=== PATIENT | female | born 1980 | race Caucasian/White ===

== ENCOUNTER 2018-11-08 08:45 | Day surgery (SDC) | payer OTHER ==
--- NOTE | 2018-11-07 21:51 | PDGENHP ---
History and Physical - Chief Complaint RIGHT HIP PAIN - History of Present Illness Diagnosis: 1.~~~Bilateral~Hip Dyplasia; Right side more symptomatic 2.~~~Bilateral~Femoroacetabular impingement (LUIS) Cam type,~with~resultant labral tear 3.~~~Sacroiliac Joint Pain 4. ~~Bilateral lower extremity~Radicular symptoms (not~yet~worked up) HISTORY OF PRESENT ILLNESS: Bandaris a~38 y.o.~~active~female~who I have had the pleasure to consult on today.~I have enjoyed meeting her.~She~lives in [place], [place].~~Bandar worked at [employer] but had to quit due to hip pain.~~She~is ;~she~has 1~ children. ~Bandarenjoys swimming, walking Meys~bilateral~hip pain (RIGHT>LEFT)~started~5 years ago, with~no~ recalled trauma or injury, and with~no~previous complaints.~Bandarhas~a known history of hip dysplasia. Presentation today is~in a C-Shaped pattern~right; lateral left. ~The hip~does~ wake her~at night and~does~click and catch on~her. Sitting~can be a real struggle~for her.~Bandardoes~report suffering from lower back pain episodes. Bandarhas not~participated in physical therapy and has~tried other conservative measures including cortisione~hip injection~x1 (no immediate relief and minimal superintendent container terminal relief), Right GT injection~.~Suzan~has not~received sufficient symptomatic improvement. Bandarhas~utilized medication for pain management, including NSAID.~ Bandarhas used medication since the pain began.~ Bandarunderstands that~suzan~has a hip and pelvis problem which should be researched and wishes to get a better understanding of~her~hip status, followed by an establishment of a treatment strategy, hoping~suzan~would be able to get back to~her~well being active life. History: Past medical history:~~ RA Lupus Heart palpitations Awais thyroiditis Relevant familial history:~None which is relevant~ Past surgical history:~ No. Surgery Anesthesia 1 Lap Gladys general 2 Tubal ligation general 3 Ex lap general Bandardescribes problematic issues with general anesthesia which includes halucinations. I have reviewed, verified and agree with the past medical, surgical, family and social history. Current Medications:~has a current medication list which includes the following prescription(s): hydroxychloroquine and potassium chloride. ALLERGIES:~is allergic to naproxen. Objective: Physical Examination: Bandaris 5~feet~4~inches tall and weighs~140~Lbs. Bandaris AAO x3; she~ is well-nourished, in NAD. Skin is warm and dry. ~Breathing is non-labored. ~CV with RRR by pulse. Abdomen is soft, NTND. Currently,~she~walks with a~abnormal~antalgic gait favoring LEFT side Trendelenburg sign is~positive~and proprioception~is reduced,~right~side. She~presents~with moderate~signs of joint laxity.~Beightons Score:~4 (thumbs and elbows) Lower spine examination is~positive~for sciatic with positive~SLR. BILATERALLY~ Range of motion of the spine is~normal~for flexion, extension, and rotations,~ with no~associated pain. Strength, Sensation and pulses are~normal -~bilaterally Ankles and knees exams are~normal~and~no~mal-alignment is evident.~ She~has~no leg length discrepancy. Thigh circumference is~symmetric~with no evidence for muscle atrophy~on both~ sides. Hip ROM (degrees): FL ER At 90~hip FL IR At 90~hip FL AB AD EX IR Neutral hip ER Neutral hip R 120 50 45 45 5 10 60 40 L 110 55 30 45 5 10 60 40 Specific hip and pelvis test Impingement Test NOEMI Roll Add. Longus R +++ +++ Negative +++ L +++ +++ Negative ++ Glut. Med ITB Posterior Imp R Negative 4+/5 strength Negative 4+/5 strength Negative L Negative 5/5 strength Negative 5/5 strength Negative Squeeze test measured~weak Bony Symphysis pubis is~painful~to touch while concentric activity of the rectus abdominis, does~produce pain at its insertion. Ilio Psos specific tests are~positive for pain during cycling for~the right hip~ and no snap. HF has~weakness and pain~the right hip. Posterior~capsule tenderness RIGHT SIDE Greater trochanteric burse is~painful~on both hips.~LEFT>RIGHT (but she received injection in Right 1 month ago. Piriformis tests: FAIR is~negative,~with no~local signs of neuritis related to sciatic nerve. SIJs examination is~produces pain on~right side~with~normal~NOEMI in relation and local tenderness. Hamstrings tests are~negative~functional contraction and negative~tendinopathy both hips. On a daily basis, the following percentages reflectRosendo's overall total pain: Deep hip:~60% GT:~10% SIJ: 30% Imaging: Radiology studies which I~have personally reviewed, analyzed and measured are below: XR: AP of the hip and pelvis: Performed in a~good~technique Coccyx to pubic symphysis distance~0.7~cm. 0~degrees [place]~Lines are preserved. Minimal~Pathological signs are seen in the Symphysis Pubis.~ Minimal~Pathological signs are seen at the Ischial~tuberosity. ~ Specific measurements show: NSA~ LCE Sourcil~Angle Sharp's angle Lat. Cam Lat. Pincer C.Over~sign Head~Coverage % ATDmm R 132 16 21 56 - - - 74 N L 138 24 11 41 - - - 79 N Pos. wall sign ISS NAD ~~Dysplasia Comments R Negative Negative 19.8~mm +++ L Negative Negative 15.7~mm ++ Sclerosis Sup. Lat. OA Cysts Joint Space-WBZ Joint Space-Medial R Negative Negative Negative 5.3~mm 3.7~mm L Negative Negative Negative 4.7~mm 3.4~mm X Table lateral: Anterior cam lesion is~seen~on both hips. Alpha Angle: ~ Right~63~dergrees Left~54~degrees Right Hip 3T~MRI shows:~good cartilage coverage, hypertrophic torn labrum, no bone edema or subchondral cysts Impression and plan:Sánchez Poe~is a~38 y.o.~active female~suffering from symptomatic~Bilateral~hip pain due to Bilateral~Hip Dyplasia and~Femoroacetabular impingement (LUIS)~Cam type,~with~resultant labral tear causing significant disability to~her~and altering~her~sport and life activities. Physical examination, imaging, and~her~story correspond with the diagnosis mentioned above. I explained that hip dysplasia is a condition wherein the hip joint has excessive play~and instability due to a variety of factors, including the depth and adequacy of the socket, the orientation of the femur bone, and ligament laxity around the hip joint. Dysplasia ranges in severity from borderline to hali, with treatment options being specific to the specific nature of the problem. Left untreated, the instability in the hip joint can cause progressive tearing of the labrum and deterioration of the surface cartilage, ultimately resulting in progressive osteoarthritis of the hip. I explained that femoroacetabular impingement (LUIS - Cam type) arises due to a bony or soft tissue conflict between the femur (ball) and acetabulum (socket) caused by an abnormality in the shape of the femoral head and neck. Over time, repetitive impingement can result in damage to the labrum and adjacent surface cartilage within the socket, ultimately giving rise to progressive osteoarthritis of the hip. I explained that although a labral tear can be a source of pain, it is rarely the root of the problem and typically occurs secondary to an underlying abnormality in the shape and mechanics of the hip joint. I reviewed conservative treatment options for Dysplasia and LUIS including activity modification to avoid positions of impingement or instability, physical therapy, non-steroidal anti-inflammatory medications, and various injections (corticosteroid and PRP) aimed at reducing inflammation in the hip joint or/and preventing dynamic instability and impingement. PRP injections may promote healing and reduce symptoms in certain cases but it will not repair chronically damaged tissue. Although these measures may help to buy time~and reduce current level of symptoms, they are not a definitive solution to the problem given the underlying abnormality in the shape of the hip joint. Patients who have failed conservative management and continue to experience symptoms are candidates for definitive surgical treatment, which may consist of hip arthroscopy alone or in combination with more invasive bony realignment procedures of the hip socket and/or femur called periacetabular osteotomy (REJI) or derotational femoral osteotomy (DFO). Hip arthroscopy typically includes treating the labrum with either repair or reconstruction of the torn labrum; as well as addressing the underlying abnormalities by restoring the normal shape to the hip joint. If the cartilage is damaged a Microfracture surgical procedure may also be necessary to help stimulate the growth of fibrocartilage. If a patient requires a labral reconstruction or a Microfracture, the initial rehabilitation from the surgery may take longer, but the superintendent container terminal results are typically favorable. I reviewed the technical aspects of periacetabular osteotomy (REJI) including risks, benefits, and expected course of recovery.~Bandarunderstands that REJI is an inpatient procedure carried out through two medium sized incisions on the front and back of the hip joint. The hip socket is cut, realigned, and stabilized with 2 3 internal screws. Risks include infection, bleeding, injury to nearby nerves or vessels, stiffness, persistent pain, instability, failure of bony healing, implant related complications, and venous thromboembolic disease. Rarely, revision surgery may be required to address these problems. Risks, potential complications, side effects and recovery from surgical procedure were discussed in length. We explained how this surgery is an open procedure, and though patients tend to do well in the long-term, it involves significant pain in the first 2-4 weeks post-op and a rather lengthy rehab.~Overall recovery takes approximately 6 12~months depending on the extent of damage and degree of repair. Bandarunderstands that she~will undergo hip arthroscopy 1 week prior to the REJI to address damage inside the hip joint. Bandarunderstands that hip arthroscopy and REJI are two separate procedures that are best performed one week apart, with the arthroscopy commencing first to "tighten up" any pathology evident in the hip joint (labral repair, etc.) and the REJI open procedure occurring 7-10 days later to realign the acetabulum. We spoke at length about her lower extremity neurologic symptoms and asked her to have a non surgical spine physician to evaluate her lumbar spine prior to moving ahead with surgical intervention. Bandarwill review the info presented. In order to obtain more detailed information regarding the alignment, orientation, and shape of the bony hip and pelvis I will order a CT scan to be performed. The results of the CT scan, including femoral torsion and acetabular version measured values and 3D images, will aid me in deciding on the best treatment strategy and surgical pre-planning. Bandarwill contact us if she~wishes to pursue further treatment in the future. Bandaris happy with this plan. I have also supplied~her~with handouts, outlining the expected surgical treatment and rehab involved. I wish~Deepika~all the best, ~~ GRACE Watson History Information - Allergies/Home Medication List Allergies/Adverse Reactions: naproxen Allergy (Mild, Verified 10/20/18 14:45) Ringing in ears adhesive tape Allergy (Verified 10/20/18 14:45) Rash Seasonal allergies Allergy (Uncoded 10/20/18 14:45) Home Medications: Hydroxychloroquine Sulfate [Plaquenil 200 mg (*)] 200 mg PO DAILY 10/20/18 [ Last Taken Unknown] Guar Gum [Benefiber/Nutrisource Fiber (*)] 1 each PO DAILY 10/29/18 [Last Taken Unknown] I have personally reviewed and updated: medical history - Social History Smoking Status: Light smoker Review of Systems Review of Systems: Physical Exam Physical Exam:
[2018-11-08] MEDS ORDERED: ceFAZolin 2 GM/DEXTROSE 100 ML IV ONE (08:51)
[2018-11-08] MEDS ORDERED: ACETAMINOPHEN 500 MG TAB PO ONE (08:51)
[2018-11-08] MEDS ORDERED: PREGABALIN 150 MG CAP PO ONE (08:51)
[2018-11-08] MEDS ORDERED: LR 1,000 ML IV ONE (08:53)
[2018-11-08] MEDS ORDERED: MIDAZOLAM 2 MG/2 ML VIAL IVP ONE (09:11)
[2018-11-08] MEDS ORDERED: BUPIVACAINE/EPI 0.25% 30 ML SDV ONE (09:16)
--- NOTE | 2018-11-08 09:17 | PDANEPAE ---
ANE Past Medical History - Cardiovascular History Hx Hypertension: No Hx Arrhythmias: No Hx Chest Pain: No Hx CHF / Valvular Disease: No Hx Palpitations: Yes Cardiovascular History Comment: INTERMITTENT Palpitations PAC'S/PVC'S. HYPOTENSION - Pulmonary History Hx COPD: No Hx Asthma/Reactive Airway Disease: No Hx Recent Upper Respiratory Infection: No Hx Oxygen in Use at Home: No Hx Sleep Apnea: No Sleep Apnea Screening Result - Last Documented: Negative - Neurologic History Hx Cerebrovascular Accident: No Hx Seizures: No Hx Dementia: No - Endocrine History Hx Diabetes: Yes Hypothyroid: No Hyperthyroid: No Obesity: no Endocrine History Comment: Awais's thyroiditis. NO RX IN USE - Renal History Hx Renal Disorders: No - Liver History Hx Hepatic Disorders: Yes Hepatic History Comment: GALACTOSEMIA at , now resolved. - Neurological & Psychiatric Hx Hx Neurological and Psychiatric Disorders: Yes Neurological / Psychiatric History Comment: Migraines,. OCD,. depression. - Cancer History Hx Cancer: No - Congenital Disorder History Hx Congenital Disorders: Yes Congenital History Comment: GalACTOSEMIA at , now resolved. - GI History GERD: no Hx Gastrointestinal Disorders: Yes Gastrointestinal History Comment: Cholecystectomy,. IBS. - Other Health History Other Health History: Lupus,. Reynaud's HANDS AND FEET. seasonal allergies. - Chronic Pain History Chronic Pain: Yes (RT HIP) - Surgical History Prior Surgeries: RT HIP SCOPE 11/08/18. HEMORRHOIDECTOMY 2018. ABDOMINAL VERICOSE VEIN COILS PLACED 2013. 2005 Cholecystectomy. 2005 D&C. 2009 Tubal ligation POST PROCEDURE ONE CAME UNDONE REQUIRING EXP LAP. 2008 Exploratiry abdominal surgery. 2009 Hysterectomy. 2012 Vericose vein coils in abdomen. 2017 Hemorrhoidectomy. Colonoscopy ANE Review of Systems Review of Systems: - Exercise capacity METS (RN): 4 METS ANE Patient History - Allergies Allergies/Adverse Reactions: naproxen Allergy (Mild, Verified 10/20/18 14:45) Ringing in ears adhesive tape Allergy (Verified 10/20/18 14:45) Rash Seasonal allergies Allergy (Uncoded 10/20/18 14:45) - Home Medications Home medications: home medication list seen and reviewed Home Medications: Hydroxychloroquine Sulfate [Plaquenil 200 mg (*)] 200 mg PO DAILY 10/20/18 [ Last Taken 11/07/18] Guar Gum [Benefiber/Nutrisource Fiber (*)] 1 each PO DAILY 10/29/18 [Last Taken 11/06/18] - NPO status NPO Since - Liquids (Date): 11/08/18 NPO Since - Liquids (Time): 06:30 NPO Since - Solids (Date): 11/07/18 NPO Since - Solids (Time): 18:40 - Anes Hx Anes Hx: no prior problems - Smoking Hx Smoking Status: Light smoker - Alcohol Use Alcohol Use: Rarely - Family Anes Hx Family Anes Hx: none Family Hx Anesthesia Complications: Maternal grandfather takes a while to come out of anesthesia. ANE Labs/Vital Signs - Vital Signs Blood Pressure: 111/70 Heart Rate: 65 Respiratory Rate: 18 O2 Sat (%): 98 Height: 162.56 cm Weight: 65.771 kg ANE Physical Exam - Airway Neck exam: FROM Mallampati Score: Class 1 Mouth exam: normal dental/mouth exam - Pulmonary Pulmonary: no respiratory distress, no rales or rhonchi - Cardiovascular Cardiovascular: regular rate and rhythym, no murmur, rub, or gallop ANE Anesthesia Plan Anesthesia Plan: general endotracheal anesthesia
[2018-11-08] MEDS ORDERED: EPINEPHrine 30 MG/30 ML MDV (0.1 MG/0.1 ML) ONE (09:21)
[2018-11-08] MEDS ORDERED: fentaNYL 250 MCG/5 ML INJ ONE (10:02)
[2018-11-08] MEDS ORDERED: ROCURONIUM 100 MG/10 ML VIAL ONE (10:03)
[2018-11-08] MEDS ORDERED: GLYCOPYRROLATE 0.2 MG/1 ML VIAL ONE ×3 (10:03→14:42)
[2018-11-08] MEDS ORDERED: DEXAMETHASONE 4 MG/ML VIAL ONE (10:03)
[2018-11-08] MEDS ORDERED: PROPOFOL/EMULSION 500 MG/50 ML BOTTLE IV ONE ×2 (10:03)
[2018-11-08] MEDS ORDERED: LIDOCAINE 2% 5 ML SDV ONE (10:03)
[2018-11-08] MEDS ORDERED: PETROLAT,WHT/MIN OIL/SOD CHL 3.5 GM OPHT.OINT ONE (10:11)
[2018-11-08] MEDS ORDERED: PROPOFOL 200 MG/20 ML VIAL ONE (13:41)
[2018-11-08] MEDS ORDERED: fentaNYL 100 MCG/2 ML INJ ONE ×2 (13:41→14:54)
[2018-11-08] MEDS ORDERED: ONDANSETRON 4 MG/2 ML VIAL ONE (14:29)
[2018-11-08] MEDS ORDERED: NEOSTIGMINE METHYLSULFATE 10 MG/10 ML MDV ONE (14:42)
[2018-11-08] MEDS ORDERED: ONDANSETRON 4 MG/2 ML VIAL IVP PRN (14:52)
[2018-11-08] MEDS ORDERED: DIAZEPAM 10 MG/2 ML SYR IVP PRN (14:52)
[2018-11-08] MEDS ORDERED: PROMETHAZINE HCL 25 MG/ML INJ IVP PRN (14:52)
[2018-11-08] MEDS ORDERED: fentaNYL 100 MCG/2 ML INJ IVP PRN (14:52)
[2018-11-08] MEDS ORDERED: NALOXONE HCL 0.4 MG/ML INJ IVP PRN (14:52)
[2018-11-08] MEDS ORDERED: HYDROmorphONE/DILAUDID 1 MG/ML INJ IVP PRN (14:52)
--- NOTE | 2018-11-08 14:57 | POSTOPPROG ---
Post Op Note Date of Operation: 11/08/18 Surgeon: Aric Reed Post Office Clerk: Dr. Brar Anesthesia: GET(General Endotracheal) Pre-op Diagnosis: RIGHT LUIS Post-op Diagnosis: RIGHT LUIS Procedure: Right Hip Arthroscopy Inf/Abcess present in the surg proc area at time of surgery?: No
[2018-11-08] MEDS ORDERED: oxyCODONE IR 5 MG TAB ONE (16:08)
[2018-11-08] MEDS ORDERED: oxyCODONE IR 5 MG TAB PO ONE (16:15)
--- NOTE | 2018-11-08 16:36 | POSTANESTH ---
Post Anesthetic Evaluation Cardiovascular Status: Normal, Stable Respiratory Status: Normal, Stable Level of Consciousness/Mental Status: Can Participate in Eval Pain Control: Adequate, Prn Tx Ordered Nausea/Vomiting Control: Adequate, Prn Tx Ordered Complications Possibly Related to Anesthesia: None Noted
== END 2018-11-08 14:40 | disposition home or self-care (01) ==
LOC: FSGY 08:45
PROVIDERS: ATTEND Orthopaedic Surgery Sports Medicine
DX: S73.191A Other sprain of right hip, initial encounter (principal); M25.851 Other specified joint disorders, right hip; M21.951 Unspecified acquired deformity of right thigh; M53.3 Sacrococcygeal disorders, not elsewhere classified; X58.XXXA Exposure to other specified factors, initial encounter
CPT/HCPCS: C1713; J0171; J0690; J1100; J2250; J2405; J2704; J3010

== ENCOUNTER 2018-11-15 10:28 | Inpatient (IN) | payer OTHER ==
--- NOTE | 2018-11-14 20:21 | PDGENHP ---
History and Physical - Chief Complaint RIGHT HIP PAIN - History of Present Illness 1.~~~Bilateral~Hip Dyplasia; Right side more symptomatic 2.~~~Bilateral~Femoroacetabular impingement (LUIS) Cam type,~with~resultant labral tear 3.~~~Sacroiliac Joint Pain 4. ~~Bilateral lower extremity~Radicular symptoms (not~yet~worked up) HISTORY OF PRESENT ILLNESS: Bandaris a~38 y.o.~~active~female~who I have had the pleasure to consult on today.~I have enjoyed meeting her.~Suzan~lives in [place], [place].~~Bandar worked at [employer] but had to quit due to hip pain.~~She~is ;~she~has 1~ children. ~Bandarenjoys swimming, walking Meys~bilateral~hip pain (RIGHT>LEFT)~started~5 years ago, with~no~ recalled trauma or injury, and with~no~previous complaints.~Bandarhas~a known history of hip dysplasia. Presentation today is~in a C-Shaped pattern~right; lateral left. ~The hip~does~ wake her~at night and~does~click and catch on~her. Sitting~can be a real struggle~for her.~Bandardoes~report suffering from lower back pain episodes. Bandarhas not~participated in physical therapy and has~tried other conservative measures including cortisione~hip injection~x1 (no immediate relief and minimal detention relief), Right GT injection~.~Suzan~has not~received sufficient symptomatic improvement. Bandarhas~utilized medication for pain management, including NSAID.~ Bandarhas used medication since the pain began.~ Bandarunderstands that~suzan~has a hip and pelvis problem which should be researched and wishes to get a better understanding of~her~hip status, followed by an establishment of a treatment strategy, hoping~suzan~would be able to get back to~her~well being active life. History: Past medical history:~~ RA Lupus Heart palpitations Awais thyroiditis Relevant familial history:~None which is relevant~ Past surgical history:~ No. Surgery Anesthesia 1 Lap Gladys general 2 Tubal ligation general 3 Ex lap general Bandardescribes problematic issues with general anesthesia which includes halucinations. I have reviewed, verified and agree with the past medical, surgical, family and social history. Current Medications:~has a current medication list which includes the following prescription(s): hydroxychloroquine and potassium chloride. ALLERGIES:~is allergic to naproxen. Objective: Physical Examination: Bandaris 5~feet~4~inches tall and weighs~140~Lbs. Bandaris AAO x3; she~ is well-nourished, in NAD. Skin is warm and dry. ~Breathing is non-labored. ~CV with RRR by pulse. Abdomen is soft, NTND. Currently,~she~walks with a~abnormal~antalgic gait favoring LEFT side Trendelenburg sign is~positive~and proprioception~is reduced,~right~side. She~presents~with moderate~signs of joint laxity.~Beightons Score:~4 (thumbs and elbows) Lower spine examination is~positive~for sciatic with positive~SLR. BILATERALLY~ Range of motion of the spine is~normal~for flexion, extension, and rotations,~ with no~associated pain. Strength, Sensation and pulses are~normal -~bilaterally Ankles and knees exams are~normal~and~no~mal-alignment is evident.~ She~has~no leg length discrepancy. Thigh circumference is~symmetric~with no evidence for muscle atrophy~on both~ sides. Hip ROM (degrees): FL ER At 90~hip FL IR At 90~hip FL AB AD EX IR Neutral hip ER Neutral hip R 120 50 45 45 5 10 60 40 L 110 55 30 45 5 10 60 40 Specific hip and pelvis test Impingement Test NOEMI Roll Add. Longus R +++ +++ Negative +++ L +++ +++ Negative ++ Glut. Med ITB Posterior Imp R Negative 4+/5 strength Negative 4+/5 strength Negative L Negative 5/5 strength Negative 5/5 strength Negative Squeeze test measured~weak Bony Symphysis pubis is~painful~to touch while concentric activity of the rectus abdominis, does~produce pain at its insertion. Ilio Psos specific tests are~positive for pain during cycling for~the right hip~ and no snap. HF has~weakness and pain~the right hip. Posterior~capsule tenderness RIGHT SIDE Greater trochanteric burse is~painful~on both hips.~LEFT>RIGHT (but she received injection in Right 1 month ago. Piriformis tests: FAIR is~negative,~with no~local signs of neuritis related to sciatic nerve. SIJs examination is~produces pain on~right side~with~normal~NOEMI in relation and local tenderness. Hamstrings tests are~negative~functional contraction and negative~tendinopathy both hips. On a daily basis, the following percentages reflectRosendo's overall total pain: Deep hip:~60% GT:~10% SIJ: 30% Imaging: Radiology studies which I~have personally reviewed, analyzed and measured are below: XR: AP of the hip and pelvis: Performed in a~good~technique Coccyx to pubic symphysis distance~0.7~cm. 0~degrees [place]~Lines are preserved. Minimal~Pathological signs are seen in the Symphysis Pubis.~ Minimal~Pathological signs are seen at the Ischial~tuberosity. ~ Specific measurements show: NSA~ LCE Sourcil~Angle Sharp's angle Lat. Cam Lat. Pincer C.Over~sign Head~Coverage % ATDmm R 132 16 21 56 - - - 74 N L 138 24 11 41 - - - 79 N Pos. wall sign ISS NAD ~~Dysplasia Comments R Negative Negative 19.8~mm +++ L Negative Negative 15.7~mm ++ Sclerosis Sup. Lat. OA Cysts Joint Space-WBZ Joint Space-Medial R Negative Negative Negative 5.3~mm 3.7~mm L Negative Negative Negative 4.7~mm 3.4~mm X Table lateral: Anterior cam lesion is~seen~on both hips. Alpha Angle: ~ Right~63~dergrees Left~54~degrees Right Hip 3T~MRI shows:~good cartilage coverage, hypertrophic torn labrum, no bone edema or subchondral cysts Impression and plan:Sánchez Poe~is a~38 y.o.~active female~suffering from symptomatic~Bilateral~hip pain due to Bilateral~Hip Dyplasia and~Femoroacetabular impingement (LUIS)~Cam type,~with~resultant labral tear causing significant disability to~her~and altering~her~sport and life activities. Physical examination, imaging, and~her~story correspond with the diagnosis mentioned above. I explained that hip dysplasia is a condition wherein the hip joint has excessive play~and instability due to a variety of factors, including the depth and adequacy of the socket, the orientation of the femur bone, and ligament laxity around the hip joint. Dysplasia ranges in severity from borderline to hali, with treatment options being specific to the specific nature of the problem. Left untreated, the instability in the hip joint can cause progressive tearing of the labrum and deterioration of the surface cartilage, ultimately resulting in progressive osteoarthritis of the hip. I explained that femoroacetabular impingement (LUIS - Cam type) arises due to a bony or soft tissue conflict between the femur (ball) and acetabulum (socket) caused by an abnormality in the shape of the femoral head and neck. Over time, repetitive impingement can result in damage to the labrum and adjacent surface cartilage within the socket, ultimately giving rise to progressive osteoarthritis of the hip. I explained that although a labral tear can be a source of pain, it is rarely the root of the problem and typically occurs secondary to an underlying abnormality in the shape and mechanics of the hip joint. I reviewed conservative treatment options for Dysplasia and LUIS including activity modification to avoid positions of impingement or instability, physical therapy, non-steroidal anti-inflammatory medications, and various injections (corticosteroid and PRP) aimed at reducing inflammation in the hip joint or/and preventing dynamic instability and impingement. PRP injections may promote healing and reduce symptoms in certain cases but it will not repair chronically damaged tissue. Although these measures may help to buy time~and reduce current level of symptoms, they are not a definitive solution to the problem given the underlying abnormality in the shape of the hip joint. Patients who have failed conservative management and continue to experience symptoms are candidates for definitive surgical treatment, which may consist of hip arthroscopy alone or in combination with more invasive bony realignment procedures of the hip socket and/or femur called periacetabular osteotomy (REJI) or derotational femoral osteotomy (DFO). Hip arthroscopy typically includes treating the labrum with either repair or reconstruction of the torn labrum; as well as addressing the underlying abnormalities by restoring the normal shape to the hip joint. If the cartilage is damaged a Microfracture surgical procedure may also be necessary to help stimulate the growth of fibrocartilage. If a patient requires a labral reconstruction or a Microfracture, the initial rehabilitation from the surgery may take longer, but the terminal computer operator results are typically favorable. I reviewed the technical aspects of periacetabular osteotomy (REJI) including risks, benefits, and expected course of recovery.~Bandarunderstands that REJI is an inpatient procedure carried out through two medium sized incisions on the front and back of the hip joint. The hip socket is cut, realigned, and stabilized with 2 3 internal screws. Risks include infection, bleeding, injury to nearby nerves or vessels, stiffness, persistent pain, instability, failure of bony healing, implant related complications, and venous thromboembolic disease. Rarely, revision surgery may be required to address these problems. Risks, potential complications, side effects and recovery from surgical procedure were discussed in length. We explained how this surgery is an open procedure, and though patients tend to do well in the long-term, it involves significant pain in the first 2-4 weeks post-op and a rather lengthy rehab.~Overall recovery takes approximately 6 12~months depending on the extent of damage and degree of repair. Bandarunderstands that she~will undergo hip arthroscopy 1 week prior to the REJI to address damage inside the hip joint. Bandarunderstands that hip arthroscopy and REJI are two separate procedures that are best performed one week apart, with the arthroscopy commencing first to "tighten up" any pathology evident in the hip joint (labral repair, etc.) and the REJI open procedure occurring 7-10 days later to realign the acetabulum. We spoke at length about her lower extremity neurologic symptoms and asked her to have a non surgical spine physician to evaluate her lumbar spine prior to moving ahead with surgical intervention. Bandarwill review the info presented. In order to obtain more detailed information regarding the alignment, orientation, and shape of the bony hip and pelvis I will order a CT scan to be performed. The results of the CT scan, including femoral torsion and acetabular version measured values and 3D images, will aid me in deciding on the best treatment strategy and surgical pre-planning. Bandarwill contact us if she~wishes to pursue further treatment in the future. Bandaris happy with this plan. I have also supplied~her~with handouts, outlining the expected surgical treatment and rehab involved. I wish~DeepikaSánchezall the best, ~~ GRACE Watson History Information - Allergies/Home Medication List Allergies/Adverse Reactions: naproxen Allergy (Mild, Verified 10/20/18 14:45) Ringing in ears adhesive tape Allergy (Verified 10/20/18 14:45) Rash Seasonal allergies Allergy (Uncoded 10/20/18 14:45) Home Medications: Hydroxychloroquine Sulfate [Plaquenil 200 mg (*)] 200 mg PO DAILY 10/20/18 [ Last Taken 11/07/18] Guar Gum [Benefiber/Nutrisource Fiber (*)] 1 each PO DAILY 10/29/18 [Last Taken 11/06/18] I have personally reviewed and updated: medical history Review of Systems Review of Systems: Physical Exam Physical Exam:
[2018-11-15] MEDS ORDERED: ceFAZolin 2 GM/DEXTROSE 100 ML IV ONE (11:06)
[2018-11-15] MEDS ORDERED: ACETAMINOPHEN 500 MG TAB PO ONE (11:06)
[2018-11-15] MEDS ORDERED: SCOPOLAMINE HYDROBROMIDE 1 MG/3 DAYS PATCH TD ONE (11:06)
[2018-11-15] MEDS ORDERED: TRANEXAMIC ACID 1,000 MG in NS 100 ML IV ONE (11:06)
[2018-11-15] MEDS ORDERED: PREGABALIN 150 MG CAP PO ONE (11:06)
[2018-11-15] MEDS ORDERED: LR 1,000 ML IV ONE (11:10)
[2018-11-15] MEDS ORDERED: CITRATE DEXTROSE SOLN 500 ML BAG ONE (11:25)
[2018-11-15] MEDS ORDERED: MIDAZOLAM 2 MG/2 ML VIAL IVP ONE (12:30)
--- NOTE | 2018-11-15 12:30 | PDANEPAE ---
ANE History of Present Illness right hip dysplsia ANE Past Medical History - Cardiovascular History Hx Hypertension: No Hx Arrhythmias: No Hx Chest Pain: No Hx CHF / Valvular Disease: No Hx Palpitations: Yes Cardiovascular History Comment: INTERMITTENT Palpitations PAC'S/PVC'S. HYPOTENSION - Pulmonary History Hx COPD: No Hx Asthma/Reactive Airway Disease: No Hx Recent Upper Respiratory Infection: No Hx Oxygen in Use at Home: No Hx Sleep Apnea: No - Neurologic History Hx Cerebrovascular Accident: No Hx Seizures: No Hx Dementia: No - Endocrine History Hx Diabetes: No Obesity: no Endocrine History Comment: Awais's thyroiditis. NO RX IN USE - Renal History Hx Renal Disorders: No - Liver History Hx Hepatic Disorders: Yes Hepatic History Comment: GALACTOSEMIA at , now resolved. - Neurological & Psychiatric Hx Hx Neurological and Psychiatric Disorders: Yes Neurological / Psychiatric History Comment: Migraines,. OCD,. depression. - Cancer History Hx Cancer: No - Congenital Disorder History Hx Congenital Disorders: Yes Congenital History Comment: GalACTOSEMIA at , now resolved. - GI History Hx Gastrointestinal Disorders: Yes Gastrointestinal History Comment: Cholecystectomy,. IBS. - Other Health History Other Health History: Lupus,. Reynaud's HANDS AND FEET. seasonal allergies. - Chronic Pain History Chronic Pain: Yes (RT HIP) - Surgical History Prior Surgeries: RT HIP SCOPE 11/08/18. HEMORRHOIDECTOMY 2018. ABDOMINAL VERICOSE VEIN COILS PLACED 2013. 2005 Cholecystectomy. 2005 D&C. 2009 Tubal ligation POST PROCEDURE ONE CAME UNDONE REQUIRING EXP LAP. 2008 Exploratiry abdominal surgery. 2009 Hysterectomy. 2012 Vericose vein coils in abdomen. 2017 Hemorrhoidectomy. Colonoscopy ANE Review of Systems Review of systems is: negative Review of Systems: - Exercise capacity METS (RN): 5 METS ANE Patient History - Allergies Allergies/Adverse Reactions: naproxen Allergy (Mild, Verified 10/20/18 14:45) Ringing in ears adhesive tape Allergy (Verified 10/20/18 14:45) Rash Seasonal allergies Allergy (Uncoded 10/20/18 14:45) - Home Medications Home medications: home medication list seen and reviewed Home Medications: Hydroxychloroquine Sulfate [Plaquenil 200 mg (*)] 200 mg PO DAILY 10/20/18 [ Last Taken 11/14/18] Guar Gum [Benefiber/Nutrisource Fiber (*)] 1 each PO DAILY 10/29/18 [Last Taken 11/13/18] Oxycodone-Acetaminophen 5-325 11/15/18 [Last Taken 11/13/18] - NPO status NPO Status: no food or drink >8 hours NPO Since - Liquids (Date): 11/15/18 NPO Since - Liquids (Time): 08:30 NPO Since - Solids (Date): 11/14/18 NPO Since - Solids (Time): 19:00 - Anes Hx Anes Hx: post operative cognitive dysfunction Hx Anesthesia Complications (with details): hallucinations post anesthesia, did not cause distress - Smoking Hx Smoking Status: Former smoker Marijuana use: No - Alcohol Use Alcohol Use: None - Family Anes Hx Family Hx Anesthesia Complications: Maternal grandfather takes a while to come out of anesthesia. ANE Labs/Vital Signs - Labs Result Diagrams: 11/15/18 11:06 - Vital Signs Blood Pressure: 102/65 Heart Rate: 66 Respiratory Rate: 16 O2 Sat (%): 98 Height: 162.56 cm Weight: 63.503 kg ANE Physical Exam - Airway Neck exam: FROM Mallampati Score: Class 1 Mouth exam: normal dental/mouth exam - Pulmonary Pulmonary: no respiratory distress, clear to auscultation - Cardiovascular Cardiovascular: regular rate and rhythym, no murmur, rub, or gallop - ASA Status ASA Status: II ANE Anesthesia Plan Anesthesia Plan: general endotracheal anesthesia, spinal
[2018-11-15] MEDS ORDERED: fentaNYL 250 MCG/5 ML INJ ONE (12:49)
[2018-11-15] MEDS ORDERED: morphINE PF 5 MG/10 ML INJ ONE (12:49)
[2018-11-15] MEDS ORDERED: PROPOFOL/EMULSION 500 MG/50 ML BOTTLE IV ONE (12:49)
[2018-11-15] MEDS ORDERED: ROCURONIUM 100 MG/10 ML VIAL ONE (12:49)
[2018-11-15] MEDS ORDERED: LIDOCAINE 2% 5 ML SDV ONE (12:49)
[2018-11-15] MEDS ORDERED: DEXAMETHASONE 4 MG/ML VIAL ONE (13:50)
[2018-11-15] MEDS ORDERED: ePHEDrine SULFATE 25 MG/5 ML SYR ONE (13:59)
[2018-11-15] MEDS ORDERED: PHENYLEPHRINE HCL 100 MCG/ML SYR ONE (16:20)
[2018-11-15] MEDS ORDERED: BISACODYL 10 MG SUPP PR PRN (18:11)
[2018-11-15] MEDS ORDERED: LACTULOSE 20 GM/30 ML UDCUP PO PRN (18:11)
[2018-11-15] MEDS ORDERED: MAGNESIUM HYDROXIDE 30 ML UDCUP PO PRN (18:11)
[2018-11-15] MEDS ORDERED: POLYETHYLENE GLYCOL 3350 17 GM PKT PO PRN (18:11)
[2018-11-15] MEDS ORDERED: ONDANSETRON DISINTEGRATING 4 MG TAB PO PRN (18:11)
[2018-11-15] MEDS ORDERED: HYDROmorphONE/DILAUDID 6 MG/30 ML PCA IV PRN (18:13)
[2018-11-15] MEDS ORDERED: NALOXONE HCL 0.4 MG/ML INJ IVP PRN ×2 (18:13→18:49)
[2018-11-15] MEDS ORDERED: diphenhydrAMINE 25 MG CAP PO PRN (18:13)
[2018-11-15] MEDS ORDERED: LR 1,000 ML IV SCH (18:30)
--- NOTE | 2018-11-15 18:46 | SUROPNOTE ---
[facility] Operative Report - Surgery Surgery was performed at [facility] on~11/15/18~ Diagnosis:~Right 1. Hip Acetabular Dysplasia ~ Operation: Right~Jazmyn Acetabular Osteotomy (REJI) Surgeon: Aric Reed MD Computer Networker:~~Beth Brar MD Anesthetic: General + spinal Procedure: General anesthetic. Antibiotics given. Cell saver in use. Fluoroscopy. Phase 1: Position lateral, diagonal skin incision between ischial tuberosity and greater trochanter as for posterior hip approach. Blunt split of glut max fibers. Identification of fat pad overlying sciatic nerve. Exposure of sciatic nerve under fat pad, gently retracting it away-medially to ischial tuberosity. Exposure of subcotoloid fossa proximal to short rotators. UsingPrecision saw, osteotomy of subcotoloid -49 mm short of (lateral to) thesciatic notch. Closure of lateral cut. Patient is turned supine. Phase 2: Skin incision just distal to ASIS. Using diathermy the iliac spine was exposed and inguinal ligament + Sartorious were retracted medially, taking the LFCN with them, protecting it. Inner ilium was dissected from iliacus muscle bluntly , with a cob and swab. Dissection continued towards lateral superior ramus pubis. Using fluoroscopy an osteotomy of lateral superior ramus, just medial to tear drop, was performed with~curved fish mouth osteotome. Phase 3: Osteotomy lines of the ilium were marked with diathermy as pre planned according to XR/CT and expected correction of acatabulum. 2 Shanz screws were drilled into central acetabular fragment, corresponding with planned correction angles, in order to mobilize central acetabular fragment after osteotomy is complete. ~Iliac osteotomy was performed with reciprocating saw and the main acetabular fragment was moved to realign weight bearing position. After confirmation of correction using fluoroscopy in AP and false profile planes, the fragment was fixed with 3 -~5.5mm~~full threaded~screws~. Inguinal ligament and Sartorious were attached back to ASIS through drill holes. Incision was closed according to soft tissue layers. Skin was closed with~subdermal Monocryl. Final fluoro shots were obtained to confirm position/correction. After surgery~Deepika~moved both lower limbs and had no NV motor compromise. Specimen - none Bleeding -~600ml Complication - none Evaluation under anesthesia: IR at 90 degrees hip flexion prior to REJI was~45~degrees and after REJI was 10~ degrees (20-25 prior to correction, 5-10 after she woke up). Bleeding:~600~cc into cell-saver, 270~of blood products were returned to patient. Post op instructions: 1.~Non~weight bearing crutches for 6 weeks - Bone was soft. 2. Continuous SCD 3. Aspirin 81 mg X1 day starting POD1 4. Avoid hip flexion past 90 and hip External rotation. 5. PT according to my recommendations at follow up visit Kind regards, Dr. Aric Reed .
[2018-11-15] MEDS ORDERED: LR 500 ML IV PRN (18:49)
[2018-11-15] MEDS ORDERED: PROMETHAZINE HCL 25 MG/ML INJ IVP PRN (18:49)
[2018-11-15] MEDS ORDERED: fentaNYL 100 MCG/2 ML INJ ONE (19:02)
[2018-11-15] MEDS: fentaNYL 100 MCG/2 ML INJ IVP PRN ×4 (19:03→20:05)
[2018-11-15] MEDS: NS 1,000 ML IV SCH (22:00)
[2018-11-15] MEDS: oxyCODONE IR 5 MG TAB PO SCH (22:17)
[2018-11-15] MEDS: SENNOSIDES/DOCUSATE SODIUM TAB PO SCH (22:17)
[2018-11-15] MEDS: NAPROXEN SODIUM 220 MG TAB PO SCH (22:17)
[2018-11-15] MEDS: ONDANSETRON 4 MG/2 ML VIAL IVP PRN (22:26)
[2018-11-16] MEDS: oxyCODONE IR 5 MG TAB PO SCH ×6 (01:58→22:06)
[2018-11-16] MEDS: NS 1,000 ML IV SCH ×2 (06:18→16:35)
[2018-11-16] MEDS: PANTOPRAZOLE SODIUM 40 MG TAB PO SCH (08:23)
[2018-11-16] MEDS: HYDROXYCHLOROQUINE SULFATE 200 MG TAB PO SCH (08:24)
[2018-11-16] MEDS: SENNOSIDES/DOCUSATE SODIUM TAB PO SCH ×2 (08:24→22:06)
[2018-11-16] MEDS: NAPROXEN SODIUM 220 MG TAB PO SCH ×3 (08:24→22:06)
[2018-11-16] MEDS: BENEFIBER/NUTRISOURCE FIBER PKT 1 EACH PO SCH (08:25)
--- NOTE | 2018-11-16 10:53 | GCON ---
[f rep st] CONSULTATION REASON FOR CONSULTATION: Medical management. HISTORY OF PRESENT ILLNESS: Deepika Gray is a 38-year-old female who has a history of lupus, Raynaud's, irritable bowel syndrome, as well as rheumatoid arthritis, who has had chronic bilateral hip pain. She is from the [place] area. She has a history of known hip dysplasia. She was referred to Dr. Reed and subsequently had surgery on the . She is postop day #1 for a periacetabular osteotomy. During my interview, her pain is overall well managed. She is on a Dilaudid HAND ROLLER. Her pain is at a level 4 without movement. She says it doubles when getting out of bed. She also has a history of irritable bowel syndrome. She recently has lost 10 pounds. She said her symptoms of irritable bowel are well controlled by an isogenic diet. She denies any chest pain. No shortness of breath. Her appetite is good. No issues with urinary frequency, burning. PAST MEDICAL HISTORY: 1. Irritable bowel syndrome. 2. Raynaud's diagnosed in 2012. 3. Lupus diagnosed in 2012. 4. Awais thyroiditis diagnosed in 2001. 5. Rheumatoid arthritis, not on treatment. 6. Tachycardia arrhythmias. She had been on metoprolol, but this was discontinued. PAST SURGICAL HISTORY: 1. Hemorrhoidectomy. 2. Cholecystectomy. 3. Tubal ligation. 4. Exploratory abdominal surgery due to bleeding after the tubal ligation. FAMILY HISTORY: Her mother has multiple health issues including psoriasis. Father's health history is unknown. SOCIAL HISTORY: She has 4 children. She is . 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 She used to smoke, but quit smoking. She drinks alcohol socially. She enjoys swimming and walking. ALLERGIES: Naproxen causes tinnitus, but not a true allergy. HOME MEDICATIONS: Percocet 1 to 2 tabs q.4 to 6 hours p.r.n., Valium 2 mg q.6 hours p.r.n., Plaquenil 200 mg daily, Benefiber daily. REVIEW OF SYSTEMS: A 10-point review of system was performed and was negative other than pertinent positives in HPI and past medical history. PHYSICAL EXAM: GENERAL: The patient is a 38-year-old female who does not appear to be in any acute distress. VITAL SIGNS: Blood pressure is 90/48, heart rate is 62, respiratory rate of 17, O2 sats on room air 95%, temperature is 36.7 Celsius. EYES: Pupils are equal and reactive. EOMs are intact. No conjunctival injection noted. ENT: Normal ears. Hearing intact. NECK: Trachea is midline. CARDIOVASCULAR: Regular rate and rhythm. No murmurs, rubs , or gallops noted. 2+ pedal pulses. CHEST/LUNGS: Normal respiratory effort. ABDOMEN: Soft, nontender. SKIN: No rashes or ulcers. Her right hip has a dressing in place; no drainage. She has a moderate amount of swelling. PSYCHIATRIC: She is alert and oriented. Normal mood and affect. Normal judgment, insight and normal memory. DATA: Reviewed. A CBC shows a white blood cell count of 8.68, hemoglobin 10.4 , hematocrit of 30.3, platelet count of 144. Chemistry: Sodium is 134, potassium 4.8, chloride 106, CO2 of 22, BUN 11, creatinine 0.7, calcium 7.8. I reviewed her care with Dr. Reed. ASSESSMENT/PLAN: 1. Hip dysplasia, most notably noted on the right side. She is status post a periacetabular osteotomy. Pain management per Orthopedics. 2. Lupus. Resume Plaquenil. 3. Tachycardia arrhythmia. Will monitor this during her stay. She is currently not on a beta tyrone. 4. Anemia. This is expected postop blood loss. Will recheck in the morning. 5. Hypotension. She is asymptomatic. Her blood pressure runs on the low side of normal. 6. Thrombocytopenia. Will follow her platelet count during her stay. 7. Deep venous thrombosis prophylaxis, on aspirin per Orthopedics. Thank you for this consultation with this delightful patient. The hospitalist team will continue to follow her throughout her stay. /[id number]/MODL MTDD
--- NOTE | 2018-11-16 11:46 | PDMN ---
Medical Necessity Medical necessity: Pt meets inpt criteria per MD order and Musculoskeletal surgery GRG, Periacetabular osteotomy, MCR IP only list. 38 y/o admitted for R REJI for R hip dysplasia, on Dilaudid [facility] for pain control, PMHx includes chronic hip pain, lupus, Raynaud's, IBS, and rheumatoid arthritis. Pt has been hypotensive post-op (last BP this AM 80/49, as low as 79/33 last evening) and thrombocytopenic, Hospital medicine following. Anticipate>2MN for ongoing management of above.
[2018-11-16] MEDS: DIAZEPAM 2 MG TAB PO PRN (12:05)
--- NOTE | 2018-11-16 16:00 | ASMTCASEMG ---
Living Arrangements What is your living Answers: With Spouse arrangement? Who do you live with? Type Of Residence What kind of residence do Answers: House you live in? Discharge Plan Comments Coordination Status Comments Notes: Patient is a 38yo female who comes to [facility] for hip surgery for right hip acetabular dysplasia. Patient lives in [place]. OT/PT evals have been ordered. D/C plan TBD. CM will follow. Date Signed: 11/16/2018 03:59 PM Electronically Signed By:Ne Pickett LCSW
--- NOTE | 2018-11-16 17:41 | PDPAINCON ---
Pain Management Consultation Patient referred by : Alycia Goff - Subjective Pain is: under control Side effects include: itchiness (mild) Activity: able to ambulate - Objective Technique: spinal opioid Sensory and motor exam: block has resolved, no apparent ill effects Vital signs: stable - Assessment/Plan Assessment/Plan: pain well-controlled, continue current mgmt (POD 1 s/p REJI with IT morphine. Mild pruritus, otherwise no complaints. Doing well with PO analgesics and DIRECTOR CAMP now.)
--- NOTE | 2018-11-16 19:21 | SOAPPROG ---
<Aric Reed Y - Last Filed: 11/16/18 18:25> SOAP Progress Note Assessment/Plan: Assessment: Plan: 11/16/18 18:22 Saw Deepika this morning POD 1, she is doing very well, expected pain when moving. LFCN 04/28, no NV issues. discussed bone cuts and subtle motion she feels. her ROM at 85 degrees flexion was around 10, I did not want to push further. Her ROM on the non op leg was the same ,despite much higher degree of motion in clinic and under anesthesia (on the left). We will wait for formal post op XR which will match her weight bearing one to assess correction versus ROM. Dr Reed Objective: Vital Signs Temp Pulse Resp BP Pulse Ox 36.9 C 61 18 74/49 L 91 L 11/16/18 17:22 11/16/18 17:22 11/16/18 17:22 11/16/18 17:22 11/16/18 17:22 Laboratory Results 11/16/18 04:37 11/16/18 04:37 11/15/18 11/16/18 11/17/18 05:59 05:59 05:59 Intake Total 3645 3246.4 Output Total 2150 1400 Balance 1495 1846.4 <Armando Glez E - Last Filed: 11/19/18 14:22> SOAP Progress Note Assessment/Plan: Assessment: Plan: Subjective: see plan for note Objective: Vital Signs Temp Pulse Resp BP Pulse Ox 37.0 C 67 17 93/52 L 98 11/19/18 11:01 11/19/18 11:01 11/19/18 11:01 11/19/18 11:01 11/19/18 11:01 Laboratory Results 11/19/18 04:30 11/16/18 04:37 11/18/18 11/19/18 11/20/18 05:59 05:59 05:59 Intake Total 1000 500 Output Total 2950 2375 550 Balance -1950 -1875 -550 - Pending Discharge Pending Discharge Within 24 Hours: No
[2018-11-17] MEDS: DIAZEPAM 2 MG TAB PO PRN ×4 (00:05→20:23)
[2018-11-17] MEDS: oxyCODONE IR 5 MG TAB PO SCH ×6 (02:15→22:04)
[2018-11-17] MEDS: NAPROXEN SODIUM 220 MG TAB PO SCH ×3 (08:15→22:03)
[2018-11-17] MEDS: ACETAMINOPHEN 325 MG TAB PO PRN ×2 (08:17→13:36)
[2018-11-17] MEDS: PANTOPRAZOLE SODIUM 40 MG TAB PO SCH (08:17)
[2018-11-17] MEDS: BENEFIBER/NUTRISOURCE FIBER PKT 1 EACH PO SCH (08:17)
[2018-11-17] MEDS: HYDROXYCHLOROQUINE SULFATE 200 MG TAB PO SCH (08:18)
[2018-11-17] MEDS: SENNOSIDES/DOCUSATE SODIUM TAB PO SCH ×2 (08:19→23:09)
[2018-11-17] MEDS: NS 1,000 ML IV SCH (13:40)
[2018-11-17] MEDS: oxyCODONE IR 5 MG TAB PO PRN ×2 (14:16→20:22)
--- NOTE | 2018-11-17 16:40 | HOSPPROG ---
Hospitalist Progress Note Assessment/Plan: 38 year old female with hip dysplasia admitted for REJI hip dysplasia- post op day 1 status post periacetabular osteotomy. Seems to be doing fairly well. management per Ortho -pt/ot -pain control -dvt prophy SLE- on plaquenil which she can continue Tachycardia- on telemetry. no arrythmias noted. continue monitoring. Anemia- post op blood loss anemia. H/H down today, but to be expected. Hypotension- likely related to anemia. Asymptomatic. if worsens or becomes symptomatic will give fluids and if needed PRBCs thrombocytopenia- developed after surgery. Monitor. PPX- asa per ortho Dispo- inpatient for REJI. Chart reviewed along [facility] records as patient is new to me. Subjective: some pain, manageable. Objective: Vital Signs Temp Pulse Resp BP Pulse Ox 36.7 C 77 19 86/39 L 92 11/17/18 15:32 11/17/18 15:32 11/17/18 15:32 11/17/18 15:32 11/17/18 15:32 Laboratory Results 11/17/18 04:45 11/16/18 04:37 11/16/18 11/17/18 11/18/18 05:59 05:59 05:59 Intake Total 3645 3746.4 Output Total 2150 3350 800 Balance 1495 396.4 -800 - Physical Exam Constitutional: no apparent distress, appears nourished, not in pain Eyes: PERRL, anicteric sclera, EOMI Ears, Nose, Mouth, Throat: moist mucous membranes, hearing normal, ears appear normal, no oral mucosal ulcers Cardiovascular: regular rate and rhythym, no murmur, rub, or gallop Respiratory: no respiratory distress, no rales or rhonchi, clear to auscultation Gastrointestinal: normoactive bowel sounds, soft, non-tender abdomen, no palpable masses Genitourinary: no bladder fullness, no bladder tenderness, no renal bruits Skin: no rashes or abrasions, no fluctuance, no induration Musculoskeletal: full muscle strength, no muscle tenderness, normal joint ROM Neurologic: AAOx3, sensation intact bilaterally Psychiatric: interacting appropriately, not anxious, not encephalopathic, thought process linear Lymph, Heme, Immunologic: no cervical LAD, no supraclavicular LAD ICD10 Worksheet Patient Problems: Problems Problem Status Onset Hip dysplasia Acute - ICD10 Problem Qualifiers (1) Hip dysplasia
--- NOTE | 2018-11-17 17:15 | SOAPPROG ---
SOAP Progress Note Assessment/Plan: Assessment: 38 yo F POD#2 s/p R REJI, doing well post-operatively though some issues with voiding requiring palm to be replaced. 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 Reed prior to discharge 11/17/18 17:12 Subjective: Pt reports pain control adequate. Palm was removed yesterday but failed TOV x2 and now has palm replaced. Has been OOB with PT/OT. No CP/SOB. Objective: Vital Signs Temp Pulse Resp BP Pulse Ox 36.7 C 77 19 86/39 L 92 11/17/18 15:32 11/17/18 15:32 11/17/18 15:32 11/17/18 15:32 11/17/18 15:32 Laboratory Results 11/17/18 04:45 11/16/18 04:37 11/16/18 11/17/18 11/18/18 05:59 05:59 05:59 Intake Total 3645 3746.4 Output Total 2150 3350 800 Balance 1495 396.4 -800 Gen: NAD R hip dressings c/d/i Minimal lateral thigh numbness in LFCN distribution Normal post-op ecchymosis/swelling 5/5 TA, GSC, EHL SILT throughout foot ICD10 Worksheet Patient Problems: Problems Problem Status Onset Hip dysplasia Acute
[2018-11-17] MEDS: ONDANSETRON 4 MG/2 ML VIAL IVP PRN (19:24)
[2018-11-17] MEDS: ASPIRIN EC 81 MG TAB PO SCH (20:23)
[2018-11-18] MEDS: oxyCODONE IR 5 MG TAB PO SCH ×4 (02:01→13:47)
[2018-11-18] MEDS: BENEFIBER/NUTRISOURCE FIBER PKT 1 EACH PO SCH (05:56)
[2018-11-18] MEDS: NAPROXEN SODIUM 220 MG TAB PO SCH ×3 (09:02→22:04)
[2018-11-18] MEDS: SENNOSIDES/DOCUSATE SODIUM TAB PO SCH ×2 (09:02→22:04)
[2018-11-18] MEDS: PANTOPRAZOLE SODIUM 40 MG TAB PO SCH (09:02)
[2018-11-18] MEDS: HYDROXYCHLOROQUINE SULFATE 200 MG TAB PO SCH (09:02)
[2018-11-18] MEDS: ASPIRIN EC 81 MG TAB PO SCH (09:02)
--- NOTE | 2018-11-18 13:46 | HOSPPROG ---
Hospitalist Progress Note Assessment/Plan: 38 year old female with hip dysplasia admitted for REJI hip dysplasia- post op day 1 status post periacetabular osteotomy. Seems to be doing fairly well. management per Ortho -pt/ot -pain control -dvt prophy -bowel regimen SLE- on plaquenil which she can continue Tachycardia- on telemetry. no arrythmias noted. continue monitoring. Anemia- post op blood loss anemia. repeat h/h in am. Hypotension- likely related to anemia. Asymptomatic. if worsens or becomes symptomatic will give fluids and if needed PRBCs thrombocytopenia- developed after surgery. Monitor. PPX- asa per ortho Dispo- inpatient for REJI. Chart reviewed along [facility] records as patient is new to me. Subjective: more pain today. Objective: Vital Signs Temp Pulse Resp BP Pulse Ox 36.9 C 54 L 14 84/48 L 92 11/18/18 08:00 11/18/18 08:00 11/18/18 08:00 11/18/18 08:00 11/18/18 08:00 Laboratory Results 11/17/18 04:45 11/16/18 04:37 11/17/18 11/18/18 11/19/18 05:59 05:59 05:59 Intake Total 3746.4 1000 Output Total 3350 2950 Balance 396.4 -1950 - Physical Exam Constitutional: no apparent distress, appears nourished, not in pain Eyes: PERRL, anicteric sclera, EOMI Ears, Nose, Mouth, Throat: moist mucous membranes, hearing normal, ears appear normal, no oral mucosal ulcers Cardiovascular: regular rate and rhythym, no murmur, rub, or gallop Respiratory: no respiratory distress, no rales or rhonchi, clear to auscultation Gastrointestinal: normoactive bowel sounds, soft, non-tender abdomen, no palpable masses Genitourinary: no bladder fullness, no bladder tenderness, no renal bruits Skin: no rashes or abrasions, no fluctuance, no induration Musculoskeletal: full muscle strength, no muscle tenderness, normal joint ROM Neurologic: AAOx3, sensation intact bilaterally Psychiatric: interacting appropriately, not anxious, not encephalopathic, thought process linear Lymph, Heme, Immunologic: no cervical LAD, no supraclavicular LAD ICD10 Worksheet Patient Problems: Problems Problem Status Onset Hip dysplasia Acute - ICD10 Problem Qualifiers (1) Hip dysplasia
[2018-11-18] MEDS: ACETAMINOPHEN 325 MG TAB PO PRN (13:47)
[2018-11-18] MEDS: ONDANSETRON 4 MG/2 ML VIAL IVP PRN (13:49)
[2018-11-18] MEDS ORDERED: HYDROmorphONE/DILAUDID 1 MG/ML INJ IVP ONE (16:45)
[2018-11-18] MEDS ORDERED: HYDROmorphONE/DILAUDID 2 MG TAB PO PRN (17:22)
[2018-11-18] MEDS: HYDROmorphONE/DILAUDID 4 MG TAB PO SCH ×2 (18:27→22:03)
--- NOTE | 2018-11-18 20:22 | SOAPPROG ---
MAYTE Progress Note Assessment/Plan: Assessment: Plan: 11/16/18 18:22 Saw Deepika this morning POD 1, she is doing very well, expected pain when moving. LFCN 04/28, no NV issues. discussed bone cuts and subtle motion she feels. her ROM at 85 degrees flexion was around 10, I did not want to push further. Her ROM on the non op leg was the same ,despite much higher degree of motion in clinic and under anesthesia (on the left). We will wait for formal post op XR which will match her weight bearing one to assess correction versus ROM. Dr Reed 11/18/18 20:19 POD 3 really struggling with pain, changed to Dilaudid today. XR now shows unchanged correction, well compatible with clinic anterior pelvic tilt WB 0 degrees XR although if corrected to standardized XR this would result in retroversion of socket. considering her WB XR from clinic indicates her true pelvic tilt and physiological gait, will leave as is. NV intact. Dr Reed Objective: Vital Signs Temp Pulse Resp BP Pulse Ox 37.1 C 76 16 87/42 L 97 11/18/18 19:42 11/18/18 19:42 11/18/18 19:42 11/18/18 19:42 11/18/18 19:42 Laboratory Results 11/18/18 14:30 11/16/18 04:37 11/17/18 11/18/18 11/19/18 05:59 05:59 05:59 Intake Total 3746.4 1000 500 Output Total 3350 2950 1025 Balance 396.4 -1950 -525 ICD10 Worksheet Patient Problems: Problems Problem Status Onset Hip dysplasia Acute
--- NOTE | 2018-11-18 20:25 | SOAPPROG ---
MAYTE Progress Note Assessment/Plan: Assessment: Plan: 11/16/18 18:22 Saw Deepika this morning POD 1, she is doing very well, expected pain when moving. LFCN 04/28, no NV issues. discussed bone cuts and subtle motion she feels. her ROM at 85 degrees flexion was around 10, I did not want to push further. Her ROM on the non op leg was the same ,despite much higher degree of motion in clinic and under anesthesia (on the left). We will wait for formal post op XR which will match her weight bearing one to assess correction versus ROM. Dr Reed 11/18/18 20:19 POD 3 really struggling with pain, changed to Dilaudid today. XR now shows unchanged correction, well compatible with clinic anterior pelvic tilt WB 0 degrees XR although if corrected to standardized XR this would result in retroversion of socket. considering her WB XR from clinic indicates her true pelvic tilt and physiological gait, will leave as is. NV intact. Dr Reed 11/18/18 20:24 Also minor drop in H/H, will repeat tomorrow. Discussed pain issue with family, assuming related to her systemic condition or related pain meds. Objective: Vital Signs Temp Pulse Resp BP Pulse Ox 37.1 C 76 16 87/42 L 97 11/18/18 19:42 11/18/18 19:42 11/18/18 19:42 11/18/18 19:42 11/18/18 19:42 Laboratory Results 11/18/18 14:30 11/16/18 04:37 11/17/18 11/18/18 11/19/18 05:59 05:59 05:59 Intake Total 3746.4 1000 500 Output Total 3350 2950 1025 Balance 396.4 -1950 -525 ICD10 Worksheet Patient Problems: Problems Problem Status Onset Hip dysplasia Acute
[2018-11-18] MEDS: DIAZEPAM 2 MG TAB PO PRN (22:35)
[2018-11-19] MEDS: HYDROmorphONE/DILAUDID 4 MG TAB PO SCH ×6 (01:44→21:52)
[2018-11-19 05:05] LABS: PLATELET COUNT 159 10^3/uL (150-400)
[2018-11-19] MEDS: NAPROXEN SODIUM 220 MG TAB PO SCH ×3 (09:51→21:51)
[2018-11-19] MEDS: ASPIRIN EC 81 MG TAB PO SCH (09:52)
[2018-11-19] MEDS: PANTOPRAZOLE SODIUM 40 MG TAB PO SCH (09:52)
[2018-11-19] MEDS: SENNOSIDES/DOCUSATE SODIUM TAB PO SCH ×2 (09:52→21:51)
[2018-11-19] MEDS: BENEFIBER/NUTRISOURCE FIBER PKT 1 EACH PO SCH (09:52)
[2018-11-19] MEDS: HYDROXYCHLOROQUINE SULFATE 200 MG TAB PO SCH (09:52)
--- NOTE | 2018-11-19 11:00 | HOSPPROG ---
Hospitalist Progress Note Assessment/Plan: 38 year old female with hip dysplasia admitted for REJI *Hip dysplasia -s/p REJI -having pain due to this *SLE -Plaquenil *Tachycardia -none noted *Anemia- post op blood loss anemia *Hypotension -asymptomatic *thrombocytopenia -post op *PPX- asa per ortho *plan: Deepika is c/o being constipated and having some ongoing pain to her right hip area. Subjective: Yuly is not feeling well this morning, feeling constipated and having pain Objective: Vital Signs Temp Pulse Resp BP Pulse Ox 37.1 C 57 L 18 98/45 L 93 11/19/18 07:30 11/19/18 07:30 11/19/18 07:30 11/19/18 07:30 11/19/18 07:30 Laboratory Results 11/19/18 04:30 11/16/18 04:37 11/18/18 11/19/18 11/20/18 05:59 05:59 05:59 Intake Total 1000 500 Output Total 2950 2375 200 Balance -1949 -1874 -200 - Physical Exam Constitutional: appears nourished, uncomfortable Eyes: PERRL Ears, Nose, Mouth, Throat: hearing normal Cardiovascular: regular rate and rhythym Respiratory: no respiratory distress Genitourinary: no bladder fullness Skin: warm, other (right hip, upper thigh area w swelling), No normal color ( pale) Musculoskeletal: muscular tenderness, generalized weakness Neurologic: AAOx3 Psychiatric: interacting appropriately ICD10 Worksheet Patient Problems: Problems Problem Status Onset Hip dysplasia Acute
[2018-11-19] MEDS: POLYETHYLENE GLYCOL 3350 17 GM PKT PO SCH (11:26)
--- NOTE | 2018-11-19 13:00 | SOAPPROG ---
MAYTE Progress Note Assessment/Plan: Assessment: 4th post op day Right Periacetabular Osteotomy Stable pelvis x-ray from yesterday Plan: Up with PT/OT [facility] tomorrow 11/19/18 12:56 Subjective: Rosita is feeling much better today. The Dilaudid is working much better for pain management. She has been up with PT/OT and to the bathroom. She denies and cp, sob or nausea. She would like to possibly go home tomorrow. Objective: Vital Signs Temp Pulse Resp BP Pulse Ox 37.0 C 67 17 93/52 L 98 11/19/18 11:01 11/19/18 11:01 11/19/18 11:01 11/19/18 11:01 11/19/18 11:01 Laboratory Results 11/19/18 04:30 11/16/18 04:37 11/18/18 11/19/18 11/20/18 05:59 05:59 05:59 Intake Total 1000 500 Output Total 2950 7083 309 Balance -1950 -1875 -550 Well appearing in NAD Right hip: some ecchymosis and edema dressings clean dry intact some thigh numbness NVI distally Full ROM of foot and ankle - Pending Discharge Pending Discharge Within 24 Hours: Yes Pending Discharge Date: 11/20/18 Pending Discharge Time: 11:00 ICD10 Worksheet Patient Problems: Problems Problem Status Onset Hip dysplasia Acute
--- NOTE | 2018-11-19 15:54 | ASMTCMCOM ---
CM Note CM Note Notes: OT and PT continue to rec home/outpatient. Anticipate pt will d/c when medically stable with family support following MD rec for outpatient PT. No CM d/c needs identified. Date Signed: 11/19/2018 03:53 PM Electronically Signed By:ANNELISE Cesar
[2018-11-19] MEDS: DIAZEPAM 2 MG TAB PO PRN (21:52)
[2018-11-20] MEDS: HYDROmorphONE/DILAUDID 4 MG TAB PO SCH ×3 (02:05→10:23)
[2018-11-20 08:06] VITALS: BP 103/68
--- NOTE | 2018-11-20 09:01 | HOSPPROG ---
Hospitalist Progress Note Assessment/Plan: 38 year old female with hip dysplasia admitted for REJI *Hip dysplasia -s/p REJI -having pain due to this *SLE -Plaquenil *Tachycardia -none noted *Anemia- post op blood loss anemia *Hypotension -asymptomatic *thrombocytopenia -post op *PPX- asa per ortho *plan: dc today per orthopedics Subjective: Yuly has ongoing pain but is able to ambuate to the bathroom. Objective: Vital Signs Temp Pulse Resp BP Pulse Ox 36.6 C 78 16 103/68 98 11/20/18 08:00 11/20/18 08:00 11/20/18 08:00 11/20/18 08:00 11/20/18 08:00 Laboratory Results 11/19/18 04:30 11/16/18 04:37 11/19/18 11/20/18 11/21/18 05:59 05:59 05:59 Intake Total 500 800 Output Total 2375 550 Balance -1875 250 - Physical Exam Constitutional: uncomfortable Eyes: PERRL Ears, Nose, Mouth, Throat: hearing normal Respiratory: no respiratory distress Skin: warm, other (right hip, upper thigh area w swelling), No normal color ( pale) Neurologic: AAOx3 Psychiatric: interacting appropriately ICD10 Worksheet Patient Problems: Problems Problem Status Onset Hip dysplasia Acute
[2018-11-20] MEDS: HYDROXYCHLOROQUINE SULFATE 200 MG TAB PO SCH (09:20)
[2018-11-20] MEDS: POLYETHYLENE GLYCOL 3350 17 GM PKT PO SCH (09:20)
[2018-11-20] MEDS: SENNOSIDES/DOCUSATE SODIUM TAB PO SCH (09:21)
[2018-11-20] MEDS: NAPROXEN SODIUM 220 MG TAB PO SCH (09:21)
[2018-11-20] MEDS: BENEFIBER/NUTRISOURCE FIBER PKT 1 EACH PO SCH (09:22)
[2018-11-20] MEDS: ASPIRIN EC 81 MG TAB PO SCH (09:22)
[2018-11-20] MEDS: PANTOPRAZOLE SODIUM 40 MG TAB PO SCH (09:22)
--- NOTE | 2018-11-20 10:15 | ASMTDCNOTE ---
Case Management Discharge Discharge Order Complete? Answers: Yes Patient to Obtain Answers: Independently Medications Transportation Arranged Answers: Family/Friends Family Notified Answers: Yes Notes: Augie, Discharge Comments Notes: Patient discharging independently to outpatient therapy and family support. No further needs. Date Signed: 11/20/2018 10:14 AM Electronically Signed By:Ne Pickett LCSW
--- NOTE | 2018-11-20 11:36 | SOAPPROG ---
SOAP Progress Note Assessment/Plan: Assessment: 38 yo F POD#5 s/p R REJI, doing well post-operatively and stable for d/c. Plan: PO pain management SCDs, ASA for DVT ppx XR cleared Stable for d/c, discussed f/u plan with the patient 11/17/18 17:12 11/20/18 11:35 Subjective: Pt reports good pain control in bed, only issues with moving out of bed. Objective: Vital Signs Temp Pulse Resp BP Pulse Ox 36.6 C 78 16 103/68 98 11/20/18 08:00 11/20/18 08:00 11/20/18 08:00 11/20/18 08:00 11/20/18 08:00 Laboratory Results 11/19/18 04:30 11/16/18 04:37 11/19/18 11/20/18 11/21/18 05:59 05:59 05:59 Intake Total 500 800 Output Total 2375 550 Balance -1875 250 Gen: NAD R hip dressings c/d/i No lateral thigh numbness 5/5 TA, GS, EHL SILT throughout foot ICD10 Worksheet Patient Problems: Problems Problem Status Onset Hip dysplasia Acute
== END 2018-11-20 13:11 | disposition home or self-care (01) | DRG 516 ==
LOC: F2W 10:44 → F3N 13:13
PROVIDERS: ADMIT Orthopaedic Surgery Sports Medicine; ATTEND Orthopaedic Surgery Sports Medicine
PROC: 0QS404Z Reposition Right Acetabulum with Internal Fixation Device, Open Approach (ICD-10-PCS; principal; 2018-11-15 13:15)
DX: M25.851 Other specified joint disorders, right hip (principal); Q65.89 Other specified congenital deformities of hip; D62 Acute posthemorrhagic anemia; I95.81 Postprocedural hypotension; D47.3 Essential (hemorrhagic) thrombocythemia; M06.9 Rheumatoid arthritis, unspecified; M32.9 Systemic lupus erythematosus, unspecified; E06.3 Autoimmune thyroiditis; I73.00 Raynaud's syndrome without gangrene
CPT/HCPCS: 97116-GP; 97161-GP; 97166-GO; 97530-GO; 97530-GP; 97535-GO; C1713; J0690; J1100; J1170; J1200; J2250; J2274; J2370; J2405; J2704; J3010